=== PATIENT | male | born 1935 | race African-American/Black ===

== ENCOUNTER 2017-12-02 10:29 | Inpatient (IN) | payer MEDICARE, MEDICAID ==
[2017-12-02] VITALS (10 sets, daily range): BP systolic 53–115; BP diastolic 15–63
[~2017-12-02] VITALS: Ht 167.6 cm; Wt 73.0 kg
[~2017-12-02 10:29] MED LIST: ACET-784 PO; ASPI-556 PO; BISA10S PR; CHOL200035 PO; CLOP75 PO; DONE10TA8 PO; DSS100 PO; FE PR; FERRHI IV; MEMA10TA11 PO; METF500T4 PO; MOM30 PO; NOVOLOG INSULIN SQ; ONDA22I IV; PANT40TA25 PO; PERCT PO; TEMA15CA PO; VALS160T2 PO
[2017-12-02] MEDS ORDERED: FAMO20 PO (10:43)
[2017-12-02] MEDS ORDERED: ATOR20TA86 PO (10:43)
[2017-12-02] MEDS ORDERED: TRAZ-144 PO (10:43)
[2017-12-02] MEDS ORDERED: DIVA125SP PO (10:43)
[2017-12-02] MEDS ORDERED: RIVA15T PO (10:43)
[2017-12-02 12:28] LABS: BASOPHILS % (AUTO) 0.3 % (0.0-2.0); EOSINOPHILS % (AUTO) 0.5 % (1.0-6.0); LYMPHOCYTES # (AUTO) 1.3 K/uL (1.0-4.8); LYMPHOCYTES % (AUTO) 12.4 % (22.0-44.0); MEAN CORPUSCULAR HEMOGLOBIN 19.4 pg (26.0-34.0); MEAN CORPUSCULAR HGB CONC 28.5 G/dL (31.0-37.0); MEAN CORPUSCULAR VOLUME 68 fL (80-100); MONOCYTES # (AUTO) 0.7 K/uL (0.1-1.0); MONOCYTES % (AUTO) 7.1 % (2.0-9.0); NEUTROPHILS # (AUTO) 8.4 K/uL (1.8-7.7); NEUTROPHILS % (AUTO) 79.7 % (40.0-70.0); PLATELET COUNT (AUTO) 310 K/uL (150-450); RED BLOOD CELL COUNT(AUTO) 2.01 MIL/uL (4.50-5.90); RED CELL DISTRIBUTION WIDTH 23.3 % (11.5-14.5)
[2017-12-02 12:34] LABS: HEMATOCRIT 13.6 % (41-53); HEMOGLOBIN 3.9 g/dL (13.5-17.5)
[2017-12-02 12:37] LABS: INR 1.2 (0.9-1.1); PROTHROMBIN TIME 12.7 SEC (9.4-11.6)
[2017-12-02 12:44] LABS: PLATELET MORPHOLOGY COMMENT GIANT PLTS PRESENT
[2017-12-02 12:49] LABS: CALCIUM, TOTAL 8.5 mg/dL (8.8-10.5); CREATININE 1.48 mg/dL (0.60-1.30); POTASSIUM 3.7 mmol/L (3.5-5.1)
[2017-12-02 13:20] LABS: ALBUMIN 3.3 g/dL (3.4-5.0); BILIRUBIN,TOTAL 0.4 mg/dL (0.1-1.0); TOTAL PROTEIN, SERUM 6.6 g/dL (6.4-8.2)
[2017-12-02 13:21] LABS: CKMB RELATIVE INDEX 0.6 % (0.0-4.0)
[2017-12-02] MEDS ORDERED: INSNOV SQ (15:29)
[2017-12-02 16:02] LABS: APPEARANCE,URINE CLEAR (CLEAR); BILIRUBIN,URINE NEGATIVE (NEGATIVE); GLUCOSE, URINE (UA) NEGATIVE (NEGATIVE); KETONES,URINE NEGATIVE (NEGATIVE); OCCULT BLOOD,URINE MODERATE (NEGATIVE); PROTEIN,URINE NEGATIVE (NEGATIVE)
[2017-12-02 16:03] LABS: LEUKOCYTE ESTERASE ,URINE TRACE (NEGATIVE); NITRATE,URINE NEGATIVE (NEGATIVE)
[2017-12-02 16:25] LABS: BACTERIA,URINE Few /HPF (None Seen); SQUAMOUS EPITHELIAL CELL,UR Few /LPF (None Seen); URIC ACID CRYSTALS,URINE Few /LPF (None Seen)
[2017-12-02] MEDS ORDERED: 0.9% SODIUM CHLORIDE 10 ML SYRINGE IVP PRN ×2 (17:00→21:15)
[2017-12-02] MEDS ORDERED: ACETAMINOPHEN 325 MG TABLET PO PRN ×2 (17:00→21:15)
[2017-12-02] MEDS ORDERED: ONDANSETRON HCL 4 MG/2 ML VIAL IVP PRN ×2 (17:00→21:15)
[2017-12-02] MEDS ORDERED: SODIUM CHLORIDE 0.9% 250 ML IV ONE (20:52)
[2017-12-02] MEDS ORDERED: FUROSEMIDE 20 MG/2 ML VIAL IVP ONE (21:15)
[2017-12-02] MEDS ORDERED: ZOLPIDEM TARTRATE 5 MG TABLET PO PRN (21:15)
[2017-12-02] MEDS ORDERED: IRON SUCROSE COMPLEX 100 MG in SODIUM CHLORIDE 0.9% 100 ML IV SCH (21:45)
[2017-12-02] MEDS: PANTOPRAZOLE SODIUM 40 MG/VIAL IVP SCH (21:59)
[2017-12-02] MEDS: TraZODone HCL 50 MG TABLET PO SCH (22:30)
[2017-12-02 22:31] LABS: % IRON SATURATION 2.5 % (30-44)
[2017-12-02] MEDS ORDERED: IRON SUCROSE COMPLEX 100 MG/5 ML VIAL IV SCH (23:00)
[2017-12-03] VITALS: BP 99/52
[2017-12-03] MEDS: IRON SUCROSE COMPLEX 100 MG in SODIUM CHLORIDE 0.9% 100 ML IV SCH (00:53)
[2017-12-03 01:24] LABS: HEMATOCRIT 23.8 % (41-53); HEMOGLOBIN 7.7 g/dL (13.5-17.5)
[2017-12-03 04:00] VITALS: BP 94/56
[2017-12-03] MEDS ORDERED: VALSARTAN 160 MG TABLET PO SCH (05:00)
[2017-12-03 05:10] LABS: HEMATOCRIT 24.7 % (41-53); HEMOGLOBIN 8.2 g/dL (13.5-17.5)
[2017-12-03 08:00] VITALS: BP 104/52
[2017-12-03] MEDS: MetFORMIN HCL 500 MG TABLET PO SCH ×2 (08:00→18:04)
[2017-12-03] MEDS: DOCUSATE SODIUM 100 MG CAPSULE PO SCH ×2 (09:00→20:50)
[2017-12-03] MEDS: DIVALPROEX SODIUM 125 MG DR CAPSULE PO SCH ×3 (09:00→21:24)
[2017-12-03] MEDS: MEMANTINE HCL 10 MG TABLET PO SCH (09:00)
[2017-12-03] MEDS: PANTOPRAZOLE SODIUM 40 MG/VIAL IVP SCH ×2 (09:28→20:50)
[2017-12-03 12:00] VITALS: BP 107/58
[2017-12-03] MEDS ORDERED: LIDOCAINE HCL/PF 2% 5 ML VIAL INJ ONE (12:00)
[2017-12-03] MEDS ORDERED: PROPOFOL 1% 20 ML VIAL IVP ONE (12:00)
[2017-12-03] MEDS ORDERED: SODIUM CHLORIDE 0.9% 1,000 ML IV ONE (12:14)
[2017-12-03 16:00] VITALS: BP 90/52
[2017-12-03 18:22] LABS: GLUCOSE,POINT OF CARE 87 MG/DL (70-110)
[2017-12-03 20:00] VITALS: BP 93/57
[2017-12-03] MEDS: ATORVASTATIN CALCIUM 20 MG TABLET PO SCH (20:49)
[2017-12-03] MEDS: TraZODone HCL 50 MG TABLET PO SCH (20:49)
[2017-12-03] MEDS: DONEPEZIL HCL 10 MG TABLET PO SCH (20:50)
[2017-12-04] VITALS: BP 103/56
[2017-12-04 04:00] VITALS: BP 102/56
[2017-12-04 05:34] LABS: ALANINE AMINOTRANSFERASE 28 U/L (12-78); ALBUMIN 2.7 g/dL (3.4-5.0); ALKALINE PHOSPHATASE 70 U/L (46-116); ANION GAP 8 mmol/L (8-16); ASPARTATE AMINOTRANSFERASE 33 U/L (15-37); BILIRUBIN,TOTAL 0.6 mg/dL (0.1-1.0); CALCIUM, TOTAL 8.4 mg/dL (8.8-10.5); CARBON DIOXIDE 28 mmol/L (22-29); CHLORIDE 111 mmol/L (98-107); GLOMERULAR FILTR. RATE CALC > 60 mL/min (>60); GLUCOSE,RANDOM 104 mg/dL (70-110); POTASSIUM 4.3 mmol/L (3.5-5.1); SODIUM SERUM 147 mmol/L (136-145); TOTAL PROTEIN, SERUM 6.2 g/dL (6.4-8.2); UREA NITROGEN, BLOOD 23 mg/dL (7-18)
[2017-12-04 06:01] LABS: BASOPHILS % (AUTO) 0.5 % (0.0-2.0); EOSINOPHILS % (AUTO) 3.3 % (1.0-6.0); HEMATOCRIT 25.2 % (41-53); HEMOGLOBIN 7.9 g/dL (13.5-17.5); LYMPHOCYTES # (AUTO) 1.7 K/uL (1.0-4.8); LYMPHOCYTES % (AUTO) 13.6 % (22.0-44.0); MEAN CORPUSCULAR HGB CONC 31.3 G/dL (31.0-37.0); MEAN CORPUSCULAR VOLUME 80 fL (80-100); MONOCYTES # (AUTO) 0.9 K/uL (0.1-1.0); MONOCYTES % (AUTO) 7.3 % (2.0-9.0); NEUTROPHILS # (AUTO) 9.6 K/uL (1.8-7.7); NEUTROPHILS % (AUTO) 75.3 % (40.0-70.0); PLATELET COUNT (AUTO) 226 K/uL (150-450); RED BLOOD CELL COUNT(AUTO) 3.16 MIL/uL (4.50-5.90); RED CELL DISTRIBUTION WIDTH 26.1 % (11.5-14.5)
[2017-12-04 06:48] LABS: GLUCOSE,POINT OF CARE 68 MG/DL (70-110)
[2017-12-04 06:48] LABS: GLUCOSE,POINT OF CARE 87 MG/DL (70-110)
[2017-12-04 08:00] VITALS: BP 109/61
[2017-12-04] MEDS: MetFORMIN HCL 500 MG TABLET PO SCH ×2 (08:33→17:30)
[2017-12-04] MEDS: DOCUSATE SODIUM 100 MG CAPSULE PO SCH ×2 (08:34→20:22)
[2017-12-04] MEDS: MEMANTINE HCL 10 MG TABLET PO SCH (08:34)
[2017-12-04] MEDS: PANTOPRAZOLE SODIUM 40 MG/VIAL IVP SCH ×2 (08:40→20:21)
[2017-12-04] MEDS: VALSARTAN 40 MG TABLET PO SCH ×3 (08:41→20:24)
[2017-12-04] MEDS: CARVEDILOL 3.125 MG TABLET PO SCH ×2 (08:41→20:23)
[2017-12-04 10:42] LABS: GLUCOSE,POINT OF CARE 105 MG/DL (70-110)
[2017-12-04] MEDS: DIVALPROEX SODIUM 125 MG DR CAPSULE PO SCH ×3 (10:48→20:22)
[2017-12-04 12:00] VITALS: BP 91/52
[2017-12-04 12:33] LABS: GLUCOSE,POINT OF CARE 115 MG/DL (70-110)
[2017-12-04] MEDS ORDERED: SODIUM CHLORIDE 0.9% 250 ML IV ONE (15:41)
[2017-12-04 16:00] VITALS: BP 106/64
[2017-12-04 18:43] LABS: GLUCOSE,POINT OF CARE 67 MG/DL (70-110)
[2017-12-04 20:00] VITALS: BP 96/56
[2017-12-04] MEDS: ATORVASTATIN CALCIUM 20 MG TABLET PO SCH (20:22)
[2017-12-04] MEDS: DONEPEZIL HCL 10 MG TABLET PO SCH (20:22)
[2017-12-04] MEDS: TraZODone HCL 50 MG TABLET PO SCH (20:22)
[2017-12-04 22:17] LABS: GLUCOSE,POINT OF CARE 138 MG/DL (70-110)
[2017-12-04] MEDS: IRON SUCROSE COMPLEX 100 MG in SODIUM CHLORIDE 0.9% 100 ML IV SCH (23:39)
[2017-12-05] VITALS (8 sets, daily range): BP systolic 95–115; BP diastolic 43–67
[2017-12-05 04:32] LABS: APPEARANCE,URINE CLEAR (CLEAR); GLUCOSE, URINE (UA) NEGATIVE (NEGATIVE); KETONES,URINE TRACE mg/dL (NEGATIVE); LEUKOCYTE ESTERASE ,URINE SMALL (NEGATIVE); NITRATE,URINE NEGATIVE (NEGATIVE); OCCULT BLOOD,URINE MODERATE (NEGATIVE); PH,URINE 5.5 (5.0-8.0); PROTEIN,URINE POS 1+ (NEGATIVE)
[2017-12-05 04:44] LABS: BILIRUBIN,URINE PRELIM. POSITIVE (NEGATIVE)
[2017-12-05 04:51] LABS: BACTERIA,URINE Rare /HPF (None Seen); SQUAMOUS EPITHELIAL CELL,UR Rare /LPF (None Seen)
[2017-12-05 05:25] LABS: BASOPHILS % (AUTO) 0.3 % (0.0-2.0); EOSINOPHILS % (AUTO) 3.2 % (1.0-6.0); HEMATOCRIT 28.7 % (41-53); HEMOGLOBIN 8.8 g/dL (13.5-17.5); LYMPHOCYTES # (AUTO) 1.6 K/uL (1.0-4.8); MEAN CORPUSCULAR HEMOGLOBIN 24.7 pg (26.0-34.0); MEAN CORPUSCULAR HGB CONC 30.7 G/dL (31.0-37.0); MEAN CORPUSCULAR VOLUME 80 fL (80-100); MONOCYTES # (AUTO) 0.8 K/uL (0.1-1.0); MONOCYTES % (AUTO) 6.4 % (2.0-9.0); NEUTROPHILS # (AUTO) 9.4 K/uL (1.8-7.7); NEUTROPHILS % (AUTO) 77.1 % (40.0-70.0); PLATELET COUNT (AUTO) 253 K/uL (150-450); RED BLOOD CELL COUNT(AUTO) 3.57 MIL/uL (4.50-5.90); RED CELL DISTRIBUTION WIDTH 27.1 % (11.5-14.5)
[2017-12-05 05:42] LABS: ALANINE AMINOTRANSFERASE 32 U/L (12-78); ALBUMIN 2.9 g/dL (3.4-5.0); ALKALINE PHOSPHATASE 75 U/L (46-116); ANION GAP 11 mmol/L (8-16); ASPARTATE AMINOTRANSFERASE 32 U/L (15-37); BILIRUBIN,TOTAL 0.5 mg/dL (0.1-1.0); CALCIUM, TOTAL 8.4 mg/dL (8.8-10.5); CARBON DIOXIDE 25 mmol/L (22-29); CHLORIDE 107 mmol/L (98-107); CREATININE 1.13 mg/dL (0.60-1.30); GLOMERULAR FILTR. RATE CALC > 60 mL/min (>60); GLUCOSE,RANDOM 99 mg/dL (70-110); SODIUM SERUM 143 mmol/L (136-145); UREA NITROGEN, BLOOD 19 mg/dL (7-18)
[2017-12-05 07:37] LABS: GLUCOSE,POINT OF CARE 96 MG/DL (70-110)
[2017-12-05 07:37] LABS: GLUCOSE,POINT OF CARE 104 MG/DL (70-110)
[2017-12-05] MEDS: VALSARTAN 40 MG TABLET PO SCH ×2 (09:00→20:32)
[2017-12-05] MEDS: PANTOPRAZOLE SODIUM 40 MG/VIAL IVP SCH ×2 (10:09→20:32)
[2017-12-05] MEDS: DIVALPROEX SODIUM 125 MG DR CAPSULE PO SCH ×3 (10:09→20:32)
[2017-12-05] MEDS: MEMANTINE HCL 10 MG TABLET PO SCH (10:10)
[2017-12-05] MEDS: DOCUSATE SODIUM 100 MG CAPSULE PO SCH ×2 (10:10→20:32)
[2017-12-05] MEDS: CARVEDILOL 3.125 MG TABLET PO SCH ×2 (10:17→20:31)
[2017-12-05 15:43] LABS: GLUCOSE,POINT OF CARE 139 MG/DL (70-110)
[2017-12-05 15:43] LABS: GLUCOSE,POINT OF CARE 67 MG/DL (70-110)
[2017-12-05] MEDS: ATORVASTATIN CALCIUM 20 MG TABLET PO SCH (20:31)
[2017-12-05] MEDS: DONEPEZIL HCL 10 MG TABLET PO SCH (20:32)
[2017-12-05] MEDS ORDERED: CARVEDILOL 6.25 MG TABLET PO SCH (21:00)
[2017-12-05] MEDS: TraZODone HCL 50 MG TABLET PO SCH (21:37)
[2017-12-06] VITALS (8 sets, daily range): BP systolic 96–107; BP diastolic 54–63
[2017-12-06 06:21] LABS: BASOPHILS % (AUTO) 0.4 % (0.0-2.0); EOSINOPHILS % (AUTO) 3.9 % (1.0-6.0); HEMATOCRIT 23.7 % (41-53); HEMOGLOBIN 7.7 g/dL (13.5-17.5); LYMPHOCYTES # (AUTO) 1.7 K/uL (1.0-4.8); LYMPHOCYTES % (AUTO) 16.4 % (22.0-44.0); MEAN CORPUSCULAR HEMOGLOBIN 25.9 pg (26.0-34.0); MEAN CORPUSCULAR HGB CONC 32.4 G/dL (31.0-37.0); MEAN CORPUSCULAR VOLUME 80 fL (80-100); MONOCYTES % (AUTO) 9.7 % (2.0-9.0); NEUTROPHILS # (AUTO) 7.4 K/uL (1.8-7.7); NEUTROPHILS % (AUTO) 69.6 % (40.0-70.0); PLATELET COUNT (AUTO) 204 K/uL (150-450); RED BLOOD CELL COUNT(AUTO) 2.96 MIL/uL (4.50-5.90); RED CELL DISTRIBUTION WIDTH 28.7 % (11.5-14.5)
[2017-12-06 06:57] LABS: ALANINE AMINOTRANSFERASE 25 U/L (12-78); ALBUMIN 2.3 g/dL (3.4-5.0); ALKALINE PHOSPHATASE 56 U/L (46-116); ANION GAP 6 mmol/L (8-16); ASPARTATE AMINOTRANSFERASE 21 U/L (15-37); BILIRUBIN,TOTAL 0.4 mg/dL (0.1-1.0); CARBON DIOXIDE 27 mmol/L (22-29); CHLORIDE 108 mmol/L (98-107); CREATININE 1.03 mg/dL (0.60-1.30); GLOMERULAR FILTR. RATE CALC > 60 mL/min (>60); GLUCOSE,RANDOM 101 mg/dL (70-110); POTASSIUM 3.6 mmol/L (3.5-5.1); SODIUM SERUM 141 mmol/L (136-145); TOTAL PROTEIN, SERUM 5.8 g/dL (6.4-8.2); UREA NITROGEN, BLOOD 15 mg/dL (7-18)
[2017-12-06 07:48] LABS: GLUCOMETER DEV NAME(LOC) 5S 2N; GLUCOSE,POINT OF CARE 110 MG/DL (70-110)
[2017-12-06 07:48] LABS: GLUCOMETER DEV NAME(LOC) 5S 2N; GLUCOSE,POINT OF CARE 117 MG/DL (70-110)
[2017-12-06 07:48] LABS: GLUCOMETER DEV NAME(LOC) 5S 2N; GLUCOSE,POINT OF CARE 100 MG/DL (70-110)
[2017-12-06] MEDS: DIVALPROEX SODIUM 125 MG DR CAPSULE PO SCH ×3 (08:14→20:37)
[2017-12-06] MEDS: PANTOPRAZOLE SODIUM 40 MG/VIAL IVP SCH ×2 (08:14→20:36)
[2017-12-06] MEDS: DOCUSATE SODIUM 100 MG CAPSULE PO SCH ×2 (08:14→20:37)
[2017-12-06] MEDS: CARVEDILOL 3.125 MG TABLET PO SCH ×2 (08:14→20:37)
[2017-12-06] MEDS: MEMANTINE HCL 10 MG TABLET PO SCH (08:15)
[2017-12-06 08:39] LABS: PLATELET MORPHOLOGY COMMENT GIANT PLTS PRESENT
[2017-12-06] MEDS: VALSARTAN 40 MG TABLET PO SCH ×2 (11:32→20:37)
[2017-12-06 15:42] LABS: B-TYPE NATRIURETIC PEPTIDE 1070 pg/mL (0-100)
[2017-12-06] MEDS: FUROSEMIDE 20 MG/2 ML VIAL IVP SCH ×2 (16:17→23:49)
[2017-12-06 19:32] LABS: GLUCOMETER DEV NAME(LOC) 5S 2N; GLUCOSE,POINT OF CARE 115 MG/DL (70-110)
[2017-12-06 19:37] LABS: GLUCOMETER DEV NAME(LOC) 5N 2S; GLUCOSE,POINT OF CARE 122 MG/DL (70-110)
[2017-12-06] MEDS: ATORVASTATIN CALCIUM 20 MG TABLET PO SCH (20:37)
[2017-12-06] MEDS: DONEPEZIL HCL 10 MG TABLET PO SCH (20:37)
[2017-12-06] MEDS: TraZODone HCL 50 MG TABLET PO SCH (20:37)
[2017-12-06 21:57] LABS: GLUCOMETER DEV NAME(LOC) 5N 2S; GLUCOSE,POINT OF CARE 107 MG/DL (70-110)
[2017-12-06] MEDS ORDERED: SODIUM CHLORIDE 0.9% 250 ML IV ONE (23:45)
[2017-12-06] MEDS: IRON SUCROSE COMPLEX 100 MG in SODIUM CHLORIDE 0.9% 100 ML IV SCH (23:49)
[2017-12-07 00:04] VITALS: BP 94/54
[2017-12-07 04:32] VITALS: BP 112/62
[2017-12-07 06:57] LABS: GLUCOMETER DEV NAME(LOC) 5N 2S; GLUCOSE,POINT OF CARE 104 MG/DL (70-110)
[2017-12-07 07:34] VITALS: BP 92/51
[2017-12-07 07:46] LABS: BASOPHILS % (AUTO) 0.6 % (0.0-2.0); EOSINOPHILS % (AUTO) 4.6 % (1.0-6.0); HEMATOCRIT 26.6 % (41-53); HEMOGLOBIN 8.5 g/dL (13.5-17.5); LYMPHOCYTES # (AUTO) 1.5 K/uL (1.0-4.8); LYMPHOCYTES % (AUTO) 15.9 % (22.0-44.0); MEAN CORPUSCULAR HEMOGLOBIN 25.8 pg (26.0-34.0); MEAN CORPUSCULAR VOLUME 81 fL (80-100); MONOCYTES # (AUTO) 0.8 K/uL (0.1-1.0); NEUTROPHILS # (AUTO) 6.5 K/uL (1.8-7.7); NEUTROPHILS % (AUTO) 69.9 % (40.0-70.0); PLATELET COUNT (AUTO) 212 K/uL (150-450)
[2017-12-07 07:58] LABS: PROTHROMBIN TIME 10.4 SEC (9.4-11.6)
[2017-12-07 08:11] LABS: B-TYPE NATRIURETIC PEPTIDE 1560 pg/mL (0-100)
[2017-12-07 08:23] LABS: ANION GAP 7 mmol/L (8-16); CALCIUM, TOTAL 8.5 mg/dL (8.8-10.5); CARBON DIOXIDE 29 mmol/L (22-29); CHLORIDE 105 mmol/L (98-107); CREATINE KINASE MB 0.6 ng/mL (0-5); CREATINE KINASE, TOTAL 111 U/L (39-308); CREATININE 1.12 mg/dL (0.60-1.30); GLOMERULAR FILTR. RATE CALC > 60 mL/min (>60); GLUCOSE,RANDOM 109 mg/dL (70-110); POTASSIUM 3.9 mmol/L (3.5-5.1); SODIUM SERUM 141 mmol/L (136-145); UREA NITROGEN, BLOOD 14 mg/dL (7-18)
[2017-12-07 08:48] LABS: PLATELET MORPHOLOGY COMMENT GIANT PLTS PRESENT
[2017-12-07] MEDS: VALSARTAN 40 MG TABLET PO SCH (09:00)
[2017-12-07] MEDS: CARVEDILOL 3.125 MG TABLET PO SCH (09:00)
[2017-12-07] MEDS: DOCUSATE SODIUM 100 MG CAPSULE PO SCH ×2 (09:50→20:55)
[2017-12-07] MEDS: PANTOPRAZOLE SODIUM 40 MG/VIAL IVP SCH ×2 (09:50→20:55)
[2017-12-07] MEDS: FUROSEMIDE 20 MG/2 ML VIAL IVP SCH (09:50)
[2017-12-07] MEDS: MEMANTINE HCL 10 MG TABLET PO SCH (09:53)
[2017-12-07] MEDS: DIVALPROEX SODIUM 125 MG DR CAPSULE PO SCH ×3 (09:53→20:55)
[2017-12-07 11:52] VITALS: BP 93/61
[2017-12-07 15:52] VITALS: BP 102/62
[2017-12-07 19:48] LABS: GLUCOMETER DEV NAME(LOC) 5N 2S; GLUCOSE,POINT OF CARE 85 MG/DL (70-110)
[2017-12-07 20:20] VITALS: BP 93/55
[2017-12-07] MEDS: DONEPEZIL HCL 10 MG TABLET PO SCH (20:55)
[2017-12-07] MEDS: ATORVASTATIN CALCIUM 20 MG TABLET PO SCH (20:55)
[2017-12-07] MEDS: TraZODone HCL 50 MG TABLET PO SCH (20:55)
[2017-12-08] VITALS (7 sets, daily range): BP systolic 98–122; BP diastolic 55–71
[2017-12-08] MEDS: PANTOPRAZOLE SODIUM 40 MG/VIAL IVP SCH ×2 (08:18→22:02)
[2017-12-08] MEDS: DOCUSATE SODIUM 100 MG CAPSULE PO SCH ×2 (08:19→21:22)
[2017-12-08] MEDS: MEMANTINE HCL 10 MG TABLET PO SCH (08:19)
[2017-12-08] MEDS: DIVALPROEX SODIUM 125 MG DR CAPSULE PO SCH ×3 (08:19→21:22)
[2017-12-08 15:03] LABS: GLUCOMETER DEV NAME(LOC) 5N 2S; GLUCOSE,POINT OF CARE 147 MG/DL (70-110)
[2017-12-08 15:03] LABS: GLUCOMETER DEV NAME(LOC) 5N 2S; GLUCOSE,POINT OF CARE 102 MG/DL (70-110)
[2017-12-08 15:07] LABS: GLUCOMETER DEV NAME(LOC) 5S 2N; GLUCOSE,POINT OF CARE 149 MG/DL (70-110)
[2017-12-08 15:07] LABS: GLUCOMETER DEV NAME(LOC) 5S 2N; GLUCOSE,POINT OF CARE 108 MG/DL (70-110)
[2017-12-08] MEDS ORDERED: FUROSEMIDE 20 MG TABLET PO ONE (18:00)
[2017-12-08] MEDS: ATORVASTATIN CALCIUM 20 MG TABLET PO SCH (21:22)
[2017-12-08] MEDS: DONEPEZIL HCL 10 MG TABLET PO SCH (21:23)
[2017-12-08] MEDS: TraZODone HCL 50 MG TABLET PO SCH (22:02)
[2017-12-08] MEDS: IRON SUCROSE COMPLEX 100 MG in SODIUM CHLORIDE 0.9% 100 ML IV SCH (23:42)
[2017-12-09 03:27] LABS: GLUCOMETER DEV NAME(LOC) 5N 2S; GLUCOSE,POINT OF CARE 115 MG/DL (70-110)
[2017-12-09 03:27] LABS: GLUCOMETER DEV NAME(LOC) 5N 2S; GLUCOSE,POINT OF CARE 93 MG/DL (70-110)
[2017-12-09 05:28] VITALS: BP 96/62
[2017-12-09 07:25] VITALS: BP 107/55
[2017-12-09] MEDS: DOCUSATE SODIUM 100 MG CAPSULE PO SCH (08:06)
[2017-12-09] MEDS: DIVALPROEX SODIUM 125 MG DR CAPSULE PO SCH ×2 (08:06→16:50)
[2017-12-09] MEDS: PANTOPRAZOLE SODIUM 40 MG/VIAL IVP SCH (08:07)
[2017-12-09] MEDS: MEMANTINE HCL 10 MG TABLET PO SCH (08:07)
[2017-12-09] MEDS ORDERED: VALSARTAN 40 MG TABLET PO SCH (09:00)
[2017-12-09] MEDS ORDERED: METOPROLOL TARTRATE 25 MG TABLET PO SCH (09:00)
[2017-12-09 09:23] VITALS: BP 95/54
[2017-12-09 11:50] VITALS: BP 99/54
[2017-12-09 14:13] LABS: GLUCOMETER DEV NAME(LOC) 5S 2N; GLUCOSE,POINT OF CARE 172 MG/DL (70-110)
[2017-12-09 14:13] LABS: GLUCOMETER DEV NAME(LOC) 5S 2N; GLUCOSE,POINT OF CARE 131 MG/DL (70-110)
[2017-12-09 15:56] VITALS: BP 142/86
[2017-12-10 13:38] LABS: GLUCOMETER DEV NAME(LOC) 5N 2S; GLUCOSE,POINT OF CARE 83 MG/DL (70-110)
== END 2017-12-09 18:30 | disposition home or self-care (01) | DRG 377 ==
LOC: EMS 10:30 → ICU 17:12 → 5N 12-05 13:45
PROVIDERS: ADMIT Hospitalist; ATTEND Hospitalist
PROC: 30233N1 Transfusion of Nonautologous Red Blood Cells into Peripheral Vein, Percutaneous Approach (ICD-10-PCS; 2017-12-02)
PROC: 0DJ08ZZ Inspection of Upper Intestinal Tract, Via Natural or Artificial Opening Endoscopic (ICD-10-PCS; principal; 2017-12-03 12:00)
DX: K92.2 Gastrointestinal hemorrhage, unspecified (principal); I21.4 Non-ST elevation (NSTEMI) myocardial infarction; I13.0 Hypertensive heart and chronic kidney disease with heart failure and stage 1 through stage 4 chronic kidney disease, or unspecified chronic kidney disease; I95.9 Hypotension, unspecified; E11.22 Type 2 diabetes mellitus with diabetic chronic kidney disease; I50.9 Heart failure, unspecified; D64.9 Anemia, unspecified; I25.5 Ischemic cardiomyopathy; F32.9 Major depressive disorder, single episode, unspecified; E78.00 Pure hypercholesterolemia, unspecified; Z79.84 Long term (current) use of oral hypoglycemic drugs; Z79.82 Long term (current) use of aspirin; Z79.899 Other long term (current) drug therapy; E78.5 Hyperlipidemia, unspecified; I25.10 Atherosclerotic heart disease of native coronary artery without angina pectoris; G89.29 Other chronic pain; G30.9 Alzheimer's disease, unspecified; F02.80 Dementia in other diseases classified elsewhere, unspecified severity, without behavioral disturbance, psychotic disturbance, mood disturbance, and anxiety; N18.9 Chronic kidney disease, unspecified; F20.9 Schizophrenia, unspecified; Z79.02 Long term (current) use of antithrombotics/antiplatelets; Z79.4 Long term (current) use of insulin
CPT/HCPCS: 36430; 71046; 82962; 83540; 83550; 83735; 85014; 85018; 86850; 86900; 86901; 86920; 87040; 87081; 93005; 93306; 97163; 97166; 97530; 99285; C9113; J1756; J1940; J2704; J3490; J7030; J7050; P9016